=== PATIENT | male | born 1980 | race Caucasian/White ===

== ENCOUNTER 2017-05-10 08:37 | Emergency (ER) | payer BC ==
[2017-05-10 09:36] LABS: Hematocrit 42 % (42-52); Hemoglobin 14.1 g/dl (14.0-18.0); Mean Corpuscular HGB Conc 34 g/dl (31-36); Mean Corpuscular Hemoglobin 29 pg (27-31); Mean Corpuscular Volume 85 fL (80-94); Mean Platelet Volume 9 um3 (7.4-10.4); Red Blood Count 4.93 10^6/ul (4.0-5.4); Red Cell Distribution Width 13 % (10.5-15); White Blood Count 6.1 10^3/ul (3.5-10.8)
--- NOTE | 2017-05-10 09:45 | ED ---
HPI Chest Pain - HPI Summary HPI Summary: Patient is a 36yo M with a history of A-fib and PAC's presents with substernal chest pressure and tightness which does not radiate since last evening prior to going to bed. He states the pressure is 3/10, is bothersome but would not describe it as pain. Notes to SOB only when he takes a deep breath. The pressure is worse with deep breaths and better with rest. Denies arm or jaw involvement. He is unable to get comfortable and states he has not slept all night. He states he is always aware when he has PAC's and Afib, and this feels different. Slightly worse with exertion. Fx history is non contributory. Last A-fib was early this year. PAC's evaluated by electrophysiology at [facility]. Denies smoking or travel. Denies any other symptoms including fevers , sweats, chills, N/V/C/D, weakness. Denies smoking history. Otherwise healthy and has no other medical problems. No history of anxiety. No recent URI symptoms. Not worse or better with position. Superintendent Meter Tests is Dr. Mckeon. He has taken an aspirin prior to arrival at 324mg. - History of Current Complaint Chief Complaint: EDChestWallPain Time Seen by Provider: 05/10/17 09:01 Hx Obtained From: Patient Onset/Duration: Started Hours Ago Time of Onset: 20:00 Timing: Constant Initial Severity: Mild Current Severity: Mild Pain Intensity: 2 Pain Scale Used: 0-10 Numeric Chest Pain Location: Mid Sternal Chest Pain Radiates: No Character: Dull/Aching, Tightness Aggravating Factor(s): Exertion Alleviating Factor(s): Position Associated Signs and Symptoms: Positive: Negative - Risk Factors Pulmonary Embolism Risk Factors: Negative TAD Risk Factors: Negative - Allergy/Home Medications Allergies/Adverse Reactions: Allergies Allergy/AdvReac Type Severity Reaction Status Date / Time No Known Allergies Allergy Verified 02/08/16 11:38 PMH/Surg Hx/FS Hx/Imm Hx Previously Healthy: Yes - Immunization History Hx Pertussis Vaccination: No Immunizations Up to Date: Unable to Obtain/Confirm Infectious Disease History: No Infectious Disease History: Denies: Traveled Outside the [place] in Last 30 Days - Social History Occupation: Employed Full-time Lives: With Family Alcohol Use: None Hx Substance Use: No Substance Use Type: Reports: None Hx Tobacco Use: No Smoking Status (MU): Never Smoked Tobacco Review of Systems - ROS Summary Review of Systems Summary: Constitutional: The patient denies fever, COTTRELL. HEENT: Head: The patient denies headaches or dizziness. Eyes: The patient denies diplopia, blurry vision, eye pain, eye discharge, photophobia. Throat: The patient denies sore throats or hoarseness. Cardiovascular: The patient endorses substernal non-radiating 2/10 chest pain. Denies palpitations, syncope, night cramps, or orthostasis. Respiratory: The patient denies cough, sputum production, hemoptysis, dyspnea, wheezing. Gastrointestinal: The patient denies odynophagia, dysphagia, hematemesis, melenemesis. Denies abdominal pain, nausea or vomiting. Denies constipation or diarrhea. Genitourinary: Patient denies dysuria, hematuria, or pyuria. Patient denies back pain. Denies vaginal discharge, vaginal bleeding. Denies other urinary symptoms. Muscles: The patient denies myalgia, strain or weakness. Joints: The patient denies arthralgia and/or arthritis. Neurologic: The patient denies headache, loss of consciousness, or seizure. Constitutional: Negative Negative: Fever, Chills, Fatigue Eyes: Negative ENT: Negative Positive: Chest Pain. Negative: Palpitations Negative: Shortness Of Breath, Cough Negative: Abdominal Pain, Vomiting, Diarrhea, Nausea Genitourinary: Negative Positive: no symptoms reported, see HPI Negative: Arthralgia, Myalgia Neurological: Negative Negative: Anxious, Depressed All Other Systems Reviewed And Are Negative: Yes Physical Exam - Summary Physical Exam Summary: Appearance: WDW, comfortable, pleasant, alert Skin: Soft dry skin, no lesions. Nailbeds pink with no cyanosis or clubbing. No petechia noted. Eyes: SIERRA, EOMI, Conjunctiva pink with no redness or exudates. Mouth: Dentition without lesions. Moist mucosa Neck: Full range of motion. Palpable thyroid. Trachea at midline. No lymphadenopathy. Pulm: Chest symmetrical expansion. No deformities on posterior chest wall. Lungs clear to auscultation and percussion, without adventitious sounds. CV: No JVD. No deformities on anterior chest wall. Heart soundsRRR, Normal S1 and single S2. No S3, S4, rubs, or murmurs. Carotids 2+ bilaterally without bruits. . exam not performed Musculoskeletal: Flexion and extension of neck limited d/t pain. Brudzynski and Kernig sign negative. No deformities noted. Pulses full and equal. Neuro: Motor strength is 5/5 in upper and lower extremities bilaterally. A&OX3 Psych: Logical, coherent Triage Information Reviewed: Yes Vital Signs On Initial Exam: Initial Vitals Temp Pulse Resp BP Pulse Ox 98.3 F 86 20 124/77 99 05/10/17 08:52 05/10/17 08:52 05/10/17 08:52 05/10/17 08:52 05/10/17 08:52 Vital Signs Reviewed: Yes Appearance: Positive: Well-Appearing, Well-Nourished Skin: Positive: Warm, Skin Color Reflects Adequate Perfusion Head/Face: Positive: Normal Head/Face Inspection Eyes: Positive: EOMI, SIERRA, Conjunctiva Clear Neck: Positive: Supple, No Lymphadenopathy Respiratory/Lung Sounds: Positive: Clear to Auscultation, Breath Sounds Present Cardiovascular: Positive: RRR, Pulses are Symmetrical in both Upper and Lower Extremities Musculoskeletal: Positive: Normal, Strength/ROM Intact Neurological: Positive: Sensory/Motor Intact, Alert, Oriented to Person Place, Time, Speech Normal Psychiatric: Positive: Normal AVPU Assessment: Alert - [place] Coma Scale Coma Scale Total: 15 Diagnostics - Vital Signs Vital Signs Temp Pulse Resp BP Pulse Ox 05/10/17 09:07 81 05/10/17 09:06 75 14 97 05/10/17 09:05 118/80 05/10/17 08:52 98.3 F 86 20 124/77 99 - Laboratory Result Diagrams: 05/10/17 09:21 05/10/17 09:21 Lab Statement: Any lab studies that have been ordered have been reviewed, and results considered in the medical decision making process. Chest Pain Course/Dx - Course Course Of Treatment: During the course of treatment, labs and trop drawn. EKG shows NSR and no acute changes. Chest xray negatie and shows no acute pathology. Aspirin not given d/t aspirin prior to arrival. at 325mg. Trop x 2 both normal. Patient made aware of results. Likley costochondritis and patient agrees to follow up as needed. He would like to be discharged and at this time , provider has a low suspician the chest dicomfort is cardiac related. - Chest Pain Differential Diagnosis/HQI/PQRI: ACS, Angina, Lower Respiratory Infection - Diagnoses Provider Diagnoses: Chest pain Discharge - Discharge Plan Condition: Stable Disposition: HOME Patient Education Materials: Costochondritis (ED) Referrals: Nicolas Kang MD [Primary Care Provider] - Additional Instructions: As discussed, we are unsure why you are having the chest discomfort Your cardiac tests were normal including your EKG and Chest xray This could be costochondritis, I have give you information Please take some ibuprofen 600mg to assess for relief of symptoms If anything becomes WORSE or you fail to improve, you may always return to the ED. Please follow up with your PCP
--- NOTE | 2017-05-10 09:51 | RAD ---
INDICATION: Chest pain COMPARISON: February 08, 2016 TECHNIQUE: An AP portable view obtained at 0930 hours is submitted. FINDINGS: Bones/Soft Tissues: There are no acute bony findings. Cardiomediastinal: The cardiomediastinal silhouette is normal. Lungs: There are no infiltrates. Pleura: There are no pleural effusions. Other: None IMPRESSION: NO ACTIVE DISEASE.
[2017-05-10 09:52] LABS: Albumin 4.5 g/dL (3.2-5.2); BUN/Creatinine Ratio 11.7 (8-20); Calcium 9.2 mg/dL (8.6-10.3); EGFR African American 88.6 (>60); EGFR Non-African American 68.9 (>60); Globulin 2.8 g/dL (2-4); Magnesium 2.2 mg/dL (1.9-2.7); Total Bilirubin 0.5 mg/dL (0.2-1.0); Total Protein 7.3 g/dL (6.4-8.9)
[2017-05-10 11:34] VITALS: BP 119/72
== END 2017-05-10 12:30 | disposition home or self-care (01) ==
LOC: ED 08:37
DX: R07.9 Chest pain, unspecified (principal)
CPT/HCPCS: 36415; 71010; 80053; 82550; 82553; 83605; 83735; 83874; 83880; 84484; 85025; 85379; 85610; 85730; 93005; 99282

== ENCOUNTER → 2018-04-24 12:20 | Emergency (ER) | payer BC ==
[2018-04-24 12:28] VITALS: BP 133/73
== END | disposition left against medical advice (07) ==
LOC: ED 12:20
DX: R00.2 Palpitations (principal); Z53.21 Procedure and treatment not carried out due to patient leaving prior to being seen by health care provider
CPT/HCPCS: 93005